=== PATIENT | female | born 1940 | race Caucasian/White ===

== ENCOUNTER 2017-02-19 14:12 | Emergency (ER) | payer OTHER ==
[2017-02-19 15:25] LABS: BASOPHIL % 0.3 % (0-2); PLATELET COUNT 207 x10^3mcL (130-400)
[2017-02-19 15:35] LABS: CALCIUM 8.5 mg/dL (8.5-10.1); CARBON DIOXIDE 26.3 mmol/L (21-32); CHLORIDE SERUM 102 mmol/L (98-107); CREATININE SERUM 0.9 mg/dL (0.6-1.0); GLUCOSE SERUM 186 mg/dL (74-106); POTASSIUM SERUM 3.3 mmol/L (3.5-5.1); SODIUM SERUM 136 mmol/L (136-145)
[2017-02-19 15:40] LABS: ALBUMIN 3.5 g/dL (3.4-5.0); ALKALINE PHOSPHATASE 139 U/L (46-116); ALT/SGPT 28 U/L (14-59); AST/SGOT 35 U/L (15-37); BILIRUBIN TOTAL 0.56 mg/dL (0.20-1.00); TOTAL PROTEIN, SERUM 8.3 g/dL (6.4-8.2)
[2017-02-19 18:55] VITALS: BP 147/88
== END 2017-02-19 18:55 | disposition home or self-care (01) ==
LOC: ED 14:12
PROVIDERS: Emergency Medicine
DX: S16.1XXA Strain of muscle, fascia and tendon at neck level, initial encounter (principal); S20.219A Contusion of unspecified front wall of thorax, initial encounter; F41.9 Anxiety disorder, unspecified; E78.5 Hyperlipidemia, unspecified; I10 Essential (primary) hypertension; Z88.5 Allergy status to narcotic agent; V43.62XA Car passenger injured in collision with other type car in traffic accident, initial encounter; Y93.I9 Activity, other involving external motion; Y92.488 Other paved roadways as the place of occurrence of the external cause; Y99.8 Other external cause status
CPT/HCPCS: J1885; J2270; J2405